=== PATIENT | male | born 1965 | race Caucasian/White ===

== ENCOUNTER 2023-07-06 11:06 | Emergency (ER) | payer OTHER ==
[~2023-07-06] VITALS: Ht 167.6 cm; Wt 82.0 kg
[2023-07-06 11:18] VITALS: TEMP 98.6
[2023-07-06] MEDS ORDERED: CAPT25TA3 PO (11:20)
[2023-07-06] MEDS ORDERED: HYDR25TA PO (11:20)
[2023-07-06] MEDS: ACETAMINOPHEN 500 MG TABLET PO ONE (12:24)
[2023-07-06 14:00] VITALS: BP 148/78; PULSE 74; RESP 18
== END 2023-07-06 14:05 | disposition home or self-care (01) ==
LOC: EMS 11:06
DX: S09.90XA Unspecified injury of head, initial encounter (principal); I10 Essential (primary) hypertension; X58.XXXA Exposure to other specified factors, initial encounter; Y93.89 Activity, other specified; Y92.89 Other specified places as the place of occurrence of the external cause; Y99.8 Other external cause status
CPT/HCPCS: 70450; 72125; 99284

== ENCOUNTER 2023-08-02 11:16 | Emergency (ER) | payer OTHER ==
[~2023-08-02] VITALS: Ht 167.6 cm; Wt 84.0 kg
[~2023-08-02 11:16] MED LIST: CAPT25TA3 PO; HYDR25TA PO
[2023-08-02 11:21] VITALS: TEMP 98.5
[2023-08-02 11:59] LABS: BASOPHILS % (AUTO) 0.3 % (0.0-2.0); EOSINOPHILS % (AUTO) 0.9 % (1.0-6.0); HEMATOCRIT 43.9 % (41-53); HEMOGLOBIN 14.9 g/dL (13.5-17.5); LYMPHOCYTES # (AUTO) 2.1 K/uL (1.0-4.8); MEAN CORPUSCULAR VOLUME 91 fL (80-100); MONOCYTES # (AUTO) 0.6 K/uL (0.1-1.0); MONOCYTES % (AUTO) 8.2 % (2.0-9.0); NEUTROPHILS # (AUTO) 4.6 K/uL (1.8-7.7); NEUTROPHILS % (AUTO) 61.6 % (40.0-70.0); PLATELET COUNT (AUTO) 225 K/uL (150-450); RED BLOOD CELL COUNT(AUTO) 4.82 MIL/uL (4.50-5.90); WHITE BLOOD COUNT (AUTO) 7.4 K/uL (4.5-11.0)
[2023-08-02 12:06] LABS: ANION GAP 6 mmol/L (8-16); CALCIUM, TOTAL 8.7 mg/dL (8.8-10.5); CARBON DIOXIDE 29 mmol/L (22-29); CHLORIDE 104 mmol/L (98-107); CREATININE 0.91 mg/dL (0.60-1.30); GLOMERULAR FILTR. RATE CALC > 60 mL/min (>60); GLUCOSE,RANDOM 103 mg/dL (70-110); POTASSIUM 3.4 mmol/L (3.5-5.1); SODIUM SERUM 139 mmol/L (136-145); UREA NITROGEN, BLOOD 22 mg/dL (7-18)
[2023-08-02 12:13] LABS: ALANINE AMINOTRANSFERASE 41 U/L (12-78); ALBUMIN 3.8 g/dL (3.4-5.0); ALKALINE PHOSPHATASE 85 U/L (46-116); ASPARTATE AMINOTRANSFERASE 22 U/L (15-37); BILIRUBIN,TOTAL 0.9 mg/dL (0.1-1.0); TOTAL PROTEIN, SERUM 7.4 g/dL (6.4-8.2)
[2023-08-02 12:23] LABS: APPEARANCE,URINE CLEAR (CLEAR); BILIRUBIN,URINE NEGATIVE (NEGATIVE); COLOR,URINE YELLOW (YELLOW); GLUCOSE, URINE (UA) NEGATIVE (NEGATIVE); KETONES,URINE NEGATIVE (NEGATIVE); LEUKOCYTE ESTERASE ,URINE NEGATIVE (NEGATIVE); NITRATE,URINE NEGATIVE (NEGATIVE); OCCULT BLOOD,URINE NEGATIVE (NEGATIVE); PROTEIN,URINE TRACE mg/dL (NEGATIVE); SPECIFIC GRAVITIY, URINE 1.025 (1.003-1.030); UROBILINOGEN,URINE <=1.0 mg/dL (<=1.0)
[2023-08-02] MEDS: KETOROLAC TROMETHAMINE 30 MG/ML VIAL IVP ONE (12:36)
[2023-08-02] MEDS: SODIUM CHLORIDE 0.9% 1,000 ML IV ONE (12:36)
[2023-08-02 13:05] VITALS: BP 149/87; PULSE 91; RESP 18
[2023-08-02] MEDS ORDERED: IBUP-1492 PO (13:54)
== END 2023-08-02 14:23 | disposition home or self-care (01) ==
LOC: EMS 11:18
DX: S29.012A Strain of muscle and tendon of back wall of thorax, initial encounter (principal); I10 Essential (primary) hypertension; X58.XXXA Exposure to other specified factors, initial encounter; Y93.89 Activity, other specified; Y92.89 Other specified places as the place of occurrence of the external cause; Y99.8 Other external cause status
CPT/HCPCS: 99283; 96374; 96361; 80053; 81003; 85025; 36415; J1885; J7030

== ENCOUNTER 2024-01-04 17:05 | Emergency (ER) | payer OTHER ==
[~2024-01-04] VITALS: Ht 180.3 cm; Wt 86.4 kg
[~2024-01-04 17:05] MED LIST changes: +IBUP-1492 PO
[2024-01-04] MEDS ORDERED: [UNRECOGNIZED DRUG - CODE] IM (17:21)
[2024-01-04 20:26] LABS: BASOPHILS % (AUTO) 0.3 % (0.0-2.0); EOSINOPHILS % (AUTO) 0.2 % (1.0-6.0); HEMATOCRIT 42.3 % (41-53); HEMOGLOBIN 14.4 g/dL (13.5-17.5); LYMPHOCYTES % (AUTO) 27.7 % (22.0-44.0); MEAN CORPUSCULAR HEMOGLOBIN 31.1 pg (26.0-34.0); MEAN CORPUSCULAR VOLUME 91 fL (80-100); MONOCYTES # (AUTO) 0.9 K/uL (0.1-1.0); MONOCYTES % (AUTO) 12.3 % (2.0-9.0); NEUTROPHILS # (AUTO) 4.2 K/uL (1.8-7.7); NEUTROPHILS % (AUTO) 59.5 % (40.0-70.0); PLATELET COUNT (AUTO) 176 K/uL (150-450); RED BLOOD CELL COUNT(AUTO) 4.63 MIL/uL (4.50-5.90); RED CELL DISTRIBUTION WIDTH 13.8 % (11.5-14.5); WHITE BLOOD COUNT (AUTO) 7.1 K/uL (4.5-11.0)
[2024-01-04] MEDS: BENZONATATE 100 MG CAPSULE PO ONE (20:27)
[2024-01-04] MEDS: ACETAMINOPHEN 500 MG TABLET PO ONE (20:27)
[2024-01-04] MEDS: IBUPROFEN 600 MG TABLET PO ONE (20:27)
[2024-01-04] MEDS: GuaiFENesin/D-METHORPHAN [SUGAR-FREE] 200-20MG/10 ML SYRUP UDCUP PO ONE (20:27)
[2024-01-04 20:34] LABS: ANION GAP 11 mmol/L (8-16); CALCIUM, TOTAL 8.2 mg/dL (8.8-10.5); CARBON DIOXIDE 29 mmol/L (22-29); CHLORIDE 97 mmol/L (98-107); CREATININE 1.19 mg/dL (0.60-1.30); GLOMERULAR FILTR. RATE CALC > 60 mL/min (>60); GLUCOSE,RANDOM 96 mg/dL (70-110); SODIUM SERUM 137 mmol/L (136-145); UREA NITROGEN, BLOOD 16 mg/dL (7-18)
[2024-01-04 20:39] LABS: POTASSIUM 2.8 mmol/L (3.5-5.1)
[2024-01-04] MEDS: POTASSIUM CHLORIDE 20 MEQ ER TABLET PO ONE (21:16)
[2024-01-04] MEDS ORDERED: IBUP-1554 PO (21:20)
[2024-01-04] MEDS ORDERED: POTA8TAB71 PO (21:20)
[2024-01-04] MEDS ORDERED: BENZ-227 PO (21:20)
[2024-01-04] MEDS ORDERED: ACET-2080 PO (21:20)
[2024-01-04] MEDS ORDERED: GUAIFDM PO (21:20)
[2024-01-04 22:06] VITALS: BP 112/59; PULSE 88; RESP 18; TEMP 99.3; O2SAT 96
== END 2024-01-04 22:10 | disposition home or self-care (01) ==
LOC: EMS 18:37
DX: J20.9 Acute bronchitis, unspecified (principal); J06.9 Acute upper respiratory infection, unspecified; E87.6 Hypokalemia; I10 Essential (primary) hypertension
CPT/HCPCS: 80048; 85025; 99284

== ENCOUNTER 2025-01-13 06:22 | Emergency (ER) | payer OTHER ==
[~2025-01-13] VITALS: Ht 167.6 cm; Wt 83.0 kg
[~2025-01-13 06:22] MED LIST changes: +ACET-2080 PO; +BENZ-227 PO; +GUAIFDM PO; +IBUP-1554 PO; +POTA8TAB71 PO; +[UNRECOGNIZED DRUG - CODE] IM
[2025-01-13 08:30] VITALS: BP 135/84; PULSE 72; RESP 18; TEMP 98; O2SAT 99
[2025-01-13] MEDS: ACETAMINOPHEN 500 MG TABLET PO ONE (08:30)
[2025-01-13] MEDS: LIDOCAINE 5% TRANSDERMAL PATCH TD ONE (08:30)
[2025-01-13] MEDS: KETOROLAC TROMETHAMINE 30 MG/ML VIAL IM ONE (08:30)
== END 2025-01-13 08:43 | disposition home or self-care (01) ==
LOC: EMS 06:22
DX: S39.012A Strain of muscle, fascia and tendon of lower back, initial encounter (principal); I10 Essential (primary) hypertension; Z79.899 Other long term (current) drug therapy; X58.XXXA Exposure to other specified factors, initial encounter; Y93.89 Activity, other specified; Y92.89 Other specified places as the place of occurrence of the external cause; Y99.8 Other external cause status
CPT/HCPCS: 99283; 96372; J1885